=== PATIENT | male | born 1990 | race Caucasian/White ===

== ENCOUNTER 2017-06-22 18:04 | Emergency (ER) | payer SELFPAY ==
[~2017-06-22] VITALS: Ht 177.8 cm; Wt 70.3 kg
[~2017-06-22 18:04] MED LIST: CONCERTA PO; IBUPROFEN PO; TRAMADOL PO
[2017-06-22] MEDS ORDERED: TETANUS/DIPHTHERIA TOX ADULT 0.5 ML SYR IM ONE (18:30)
[2017-06-22] MEDS ORDERED: LIDOCAINE HCL 1% LOCAL INJ 20 ML VIAL INJ ONE (19:30)
[2017-06-22 20:53] VITALS: BP 136/100
[2017-06-22] MEDS ORDERED: AUGMENTIN 875-1 EACH PO (20:53)
[2017-06-22] MEDS ORDERED: BACITRACIN ZINC 0.9GM TP ONE ×2 (20:56→21:00)
[2017-06-22] MEDS ORDERED: MUPIROCIN 2% OINT 22 GM TUBE TOP ONE (21:00)
== END 2017-06-22 21:21 | disposition home or self-care (01) ==
LOC: ER 18:04
DX: S01.551A Open bite of lip, initial encounter (principal); W54.0XXA Bitten by dog, initial encounter; Y92.008 Other place in unspecified non-institutional (private) residence as the place of occurrence of the external cause
CPT/HCPCS: 12051; 90471; 90714; 99283; J2001

== ENCOUNTER → 2018-09-18 | Outpatient (CLI) | payer OTHER ==
[~2018-09-18] MED LIST changes: +AUGMENTIN 875-1 EACH PO
--- NOTE | 2018-09-18 13:25 | Diagnostic Imaging Report ---
EXAM: Renal Ultrasound INDICATION: ^HTN/DIZZINESS GIDDINESS/PALPITATIONS COMPARISON: None TECHNIQUE: Transverse and longitudinal images of the kidneys and bladder were obtained. FINDINGS: Right Kidney: Length: 10.1 cm Appearance: Normal echogenicity. Collecting system: No hydronephrosis Stones: None Cyst/Mass: None Left Kidney: Length: 10.8 cm Appearance: Normal echogenicity. Collecting system: No hydronephrosis Stones: None Cyst/Mass: None Bladder: No mass or calculi. Weak bilateral jets seen. Prevoid volume estimate of 227cc. Prostate: The prostate measures 2.1 x 1.9 x 2.2 cm with a volume estimate of 4.5 cc. IMPRESSION: No renal calculi or hydronephrosis. Signed by: Nery Waters MD on 09/18/2018 1:22 PM
== END ==
LOC: US 11:26
PROVIDERS: ATTEND Family Medicine
DX: R00.2 Palpitations (principal); I10 Essential (primary) hypertension; R42 Dizziness and giddiness
CPT/HCPCS: 76770; 93306